=== PATIENT | female | born 1980 | race Caucasian/White ===

== ENCOUNTER 2017-01-12 20:01 | Emergency (ER) | payer OTHER ==
[~2017-01-12] VITALS: Ht 157.5 cm; Wt 68.0 kg
--- NOTE | 2017-01-12 20:08 | NUR ---
AMBULATED TO ER BED 7
[2017-01-12 20:11] VITALS: BP 112/76
[2017-01-12] MEDS ORDERED: NACL 0.9% 1,000 ML IV SCH (20:36)
--- NOTE | 2017-01-12 20:36 | NUR ---
36Y/F PT. PRESENST TO ED WITH C/O ABDOMINAL PAIN X 2 DAYS. PT. STATES WITH NAUSEA. HX.OVARIAN CYSTR, NO SX. AAO X4, AMBULATORY WITH STEADY GAIT. RESPIRATIONS ROOM AIR, EVEN AND UNLABORED. ABDOMEN SOFT, NON TENDER, ACTIVE BS X4, C/O LOWER ABDOMINAL PAIN 9/10. VSS, ER MD MADE AWARE OF PT. STATUS.
[2017-01-12] MEDS ORDERED: MORPHINE SULFATE 2 MG/ML SYR IVP ONE (20:40)
[2017-01-12] MEDS ORDERED: ONDANSETRON 4 MG/2 ML VIAL IVP ONE (20:40)
--- NOTE | 2017-01-12 20:45 | NUR ---
PT. TAKEN TO CT
[2017-01-12 21:00] LABS: APPEARANCE,URINE SL CLOUDY (CLEAR); BILIRUBIN,URINE NEGATIVE (NEGATIVE); BLOOD, URINE 1+ (NEGATIVE); COLOR,URINE YELLOW (YELLOW); LEUKOCYTE ESTERASE ,URINE 2+ (NEGATIVE); NITRITE, URINE POSITIVE (NEGATIVE); UGLUCOSE NEGATIVE (NEGATIVE)
[2017-01-12 21:00] LABS: BASOPHILS # (AUTO) 0.2 K/uL (0.00-0.22); EOSINOPHILS # (AUTO) 0.2 K/uL (0-0.4); EOSINOPHILS % (AUTO) 1.8 % (0.0-4.0); HEMATOCRIT 34.5 % (36-48); HEMOGLOBIN 11.5 g/dL (12.0-16.0); LYMPHOCYTES # (AUTO) 1.9 K/uL (2.5-16.5); MEAN CORPUSCULAR HEMOGLOBIN 27 pg (27-31); MEAN CORPUSCULAR HGB CONC 33 g/dL (33-37); MEAN CORPUSCULAR VOLUME 82 fL (80-94); MONOCYTES # (AUTO) 0.9 K/uL (0.8-1.0); NEUTROPHILS # (AUTO) 7.3 K/uL (1.8-7.7); NEUTROPHILS % (AUTO) 69.2 % (42.2-75.2); PLATELET COUNT (AUTO) 315 K/uL (140-450); RED BLOOD CELL COUNT(AUTO) 4.22 MIL/uL (4.20-5.40); RED CELL DISTRIBUTION WIDTH 14.4 % (11.6-13.7); WHITE BLOOD COUNT (AUTO) 10.5 K/uL (4.8-10.8)
--- NOTE | 2017-01-12 21:05 | NUR ---
PT. BACK FROM CT.
[2017-01-12 21:07] LABS: RBC,URINE 3-10 (FEW) /HPF (0-5)
[2017-01-12 21:08] LABS: WBC,URINE 80-100 /HPF (0-5)
--- NOTE | 2017-01-12 21:08 | NUR ---
US AT BEDSIDE
[2017-01-12 21:11] LABS: CARBON DIOXIDE 26.4 mmol/L (21-32); CREATININE 0.9 mg/dL (0.6-1.3); POTASSIUM 3.4 mmol/L (3.5-5.1)
[2017-01-12 21:18] LABS: ALBUMIN 3.2 g/dL (3.4-5.0); TOTAL BILIRUBIN 0.4 mg/dL (0.0-1.0)
[2017-01-12] MEDS ORDERED: cefTRIAXone 1,000 MG VIAL ONE (21:43)
[2017-01-12 22:04] VITALS: BP 112/76
--- NOTE | 2017-01-12 22:05 | NUR ---
Patient discharged with v/s stable. Written and verbal after care instructions given and explained. Patient alert, oriented and verbalized understanding of instructions. Ambulatory with steady gait. All questions addressed prior to discharge. ID band removed. Patient advised to follow up with PMD. Rx of CIPRO 500 MG, MOTRIN 600 MG, ZOFRAN 4 MG given. Patient educated on indication of medication including possible reaction and side effects. Opportunity to ask questions provided and answered.
== END 2017-01-12 22:05 | disposition home or self-care (01) ==
LOC: MED 20:01
DX: N12 Tubulo-interstitial nephritis, not specified as acute or chronic (principal); J45.909 Unspecified asthma, uncomplicated
CPT/HCPCS: 36415; 74176; 76856; 80053; 81001; 81025; 83690; 84703; 85025; 87086; 87186; 96361; 96365; 96375; 99285; J0696; J2270; J2405; J7030; Q0092

== ENCOUNTER 2019-08-21 18:00 | Emergency (ER) | payer OTHER ==
[~2019-08-21] VITALS: Ht 154.9 cm; Wt 76.7 kg
[2019-08-21 18:11] VITALS: BP 120/75
--- NOTE | 2019-08-21 18:38 | NUR ---
Patient discharged with v/s stable by Dr. Rutledge. Written and verbal after care instructions given and explained. Patient verbalized understanding. Ambulatory with steady gait. All questions addressed prior to discharge. Advised to follow up with PMD. No nursing care provided in the ER.
== END 2019-08-21 18:38 | disposition home or self-care (01) ==
LOC: MED 18:00
DX: S40.861A Insect bite (nonvenomous) of right upper arm, initial encounter (principal); R20.2 Paresthesia of skin; J45.909 Unspecified asthma, uncomplicated; W57.XXXA Bitten or stung by nonvenomous insect and other nonvenomous arthropods, initial encounter; Y93.89 Activity, other specified; Y92.89 Other specified places as the place of occurrence of the external cause; Y99.8 Other external cause status
CPT/HCPCS: 99281

== ENCOUNTER 2020-10-29 17:23 | Emergency (ER) | payer OTHER ==
[~2020-10-29] VITALS: Ht 154.9 cm; Wt 59.0 kg
[2020-10-29 17:50] VITALS: BP 109/70
== END 2020-10-29 20:29 | disposition left against medical advice (07) ==
LOC: MED 17:23
DX: M54.5 Low back pain (principal); Z53.21 Procedure and treatment not carried out due to patient leaving prior to being seen by health care provider
CPT/HCPCS: 81002; 81025